=== PATIENT | male | born 1945 | race Caucasian/White ===

== ENCOUNTER 2017-03-08 20:13 | Inpatient (IN) | payer OTHER ==
[~2017-03-08] VITALS: Ht 175.3 cm; Wt 70.5 kg
[~2017-03-08 20:13] MED LIST: CAR3125T PO; CHOL20007 PO; ENA2.5T PO; FURO40TA PO; METF500T5; POTA10TA75 PO; WARF5TAB PO
[2017-03-08 20:58] LABS: Urine Bilirubin Negative (Negative); Urine Blood Negative /uL (Negative); Urine Color Yellow (Yellow); Urine Glucose Normal (Normal); Urine Hyaline Cast MOD /lpf (0 - 2); Urine Ketone Negative (Negative); Urine Mucus FEW (None Seen); Urine Nitrite Negative (Negative); Urine RBC <1 /hpf (0 - 3); Urine Squamous Epithelial Cell FEW /hpf (<5)
[2017-03-08] MEDS ORDERED: MORPHINE SULF INJ 2 MG/ML SYRINGE 1ML IV ONE (21:15)
[2017-03-08] MEDS ORDERED: ONDANSETRON HCL 4 MG/2 ML VIAL IV ONE (21:15)
[2017-03-08 21:29] LABS: Basophils # (auto) 0.1 uL; Basophils % (auto) 0.7 % (0.0-2.0); Eosinophils # (auto) 0.2 uL; Eosinophils % (auto) 2.3 % (0.0-7.0); Hematocrit 52.7 % (41.0-53.0); Hemoglobin 17.4 g/dL (13.5-17.5); Lymphocytes # (auto) 2.2 uL; Lymphocytes % (auto) 22.4 % (10.0-50.0); Mean Corpuscular Hemoglobin 30.7 pg (28.0-32.0); Mean Corpuscular Hgb Conc. 33.1 g/dL (32.0-36.0); Mean Corpuscular Volume 92.8 fL (80.0-100.0); Mean Platelet Volume 9.6 fL (6.9-10.8); Monocytes # (auto) 0.7 uL; Monocytes % (auto) 6.7 % (0.0-12.0); Neutrophils # (auto) 6.7 uL; Neutrophils % (auto) 67.9 % (37.0-80.0); Nucleated Red Blood Cells % 0.2 %; Platelet Count (auto) 143 10^3/uL (140-450); Red Cell Distribution Width 14.8 % (11.8-14.3); White Blood Cell 9.9 10^3/uL (4.4-10.8)
[2017-03-08 21:42] LABS: INR 3.21 (0.9-1.15); Partial Thromboplastin Time 30.7 sec (22.64-33.71); Prothrombin Time 35.4 sec (9.37-12.3)
[2017-03-08 21:53] LABS: Albumin 3.6 g/dL (3.4-5.0); BUN/Creatinine Ratio 23.3; Bilirubin, Total 1.3 mg/dL (0.2-1.0); Calcium 8.6 mg/dL (8.5-10.1); Magnesium 2.5 mg/dL (1.6-2.6); Potassium 4.8 mmol/L (3.5-5.1); Total Protein 7.7 g/dL (6.4-8.2)
[2017-03-09] MEDS ORDERED: TEMAZEPAM 15 MG CAP PO PRN (00:45)
[2017-03-09] MEDS ORDERED: PANTOPRAZOLE 40 MG/10 ML VIAL IV ONE (00:45)
[2017-03-09] MEDS ORDERED: DEXTROSE (50%) 50ML SYRG IV PRN (00:45)
[2017-03-09] MEDS ORDERED: ONDANSETRON HCL 4 MG/2 ML VIAL IV PRN (00:45)
[2017-03-09] MEDS ORDERED: FUROSEMIDE 40 MG/4 ML VIAL IV ONE (00:45)
[2017-03-09 01:33] LABS: Temperature: 22.2 C (20.0-25.0)
[2017-03-09 07:40] VITALS: BP 103/73
[2017-03-09] MEDS ORDERED: LISI2.5T47 PO (07:56)
[2017-03-09] MEDS ORDERED: COEN400C8 OR (07:56)
[2017-03-09] MEDS ORDERED: FURO40TA PO (07:56)
[2017-03-09] MEDS ORDERED: WARF2.5T39 PO (07:56)
[2017-03-09 08:08] LABS: Basophils # (auto) 0.1 uL; Basophils % (auto) 0.6 % (0.0-2.0); Eosinophils # (auto) 0.3 uL; Eosinophils % (auto) 3.2 % (0.0-7.0); Hematocrit 47.1 % (41.0-53.0); Hemoglobin 15.8 g/dL (13.5-17.5); Lymphocytes # (auto) 2.2 uL; Mean Corpuscular Hemoglobin 30.8 pg (28.0-32.0); Mean Corpuscular Hgb Conc. 33.7 g/dL (32.0-36.0); Mean Corpuscular Volume 91.4 fL (80.0-100.0); Mean Platelet Volume 9.6 fL (6.9-10.8); Monocytes # (auto) 0.7 uL; Monocytes % (auto) 8.3 % (0.0-12.0); Neutrophils # (auto) 5.5 uL; Neutrophils % (auto) 62.9 % (37.0-80.0); Nucleated Red Blood Cells % 0.6 %; Platelet Count (auto) 130 10^3/uL (140-450); Red Cell Distribution Width 14.3 % (11.8-14.3); White Blood Cell 8.8 10^3/uL (4.4-10.8)
[2017-03-09] MEDS: InsuLIN REG 1unit/0.01ml Soln (100units/ml) SC SCH ×4 (08:12→21:45)
[2017-03-09] MEDS: ACCU-CHEK COMFORT CURVE STRIP VI SCH ×4 (08:12→21:29)
[2017-03-09 08:13] LABS: BUN/Creatinine Ratio 29.3; Calcium 8.2 mg/dL (8.5-10.1); Potassium 4.8 mmol/L (3.5-5.1)
[2017-03-09 08:15] LABS: Bilirubin, Total 1.1 mg/dL (0.2-1.0); Total Protein 6.1 g/dL (6.4-8.2)
[2017-03-09] MEDS: LISINOPRIL 5 MG TAB PO SCH (10:00)
[2017-03-09] MEDS: CARVEDILOL 3.125 MG TAB PO SCH ×2 (10:00→21:28)
[2017-03-09] MEDS: PANTOPRAZOLE 40 MG/10 ML VIAL IV SCH (10:00)
[2017-03-09] MEDS: FUROSEMIDE 20 MG TAB PO SCH (10:00)
[2017-03-09] MEDS: POTASSIUM CHL 10 Meq TABLET PO SCH (10:24)
[2017-03-09 13:40] VITALS: BP_SYST 104; BP_SYST 117; BP_DIAS 68; BP_DIAS 72
[2017-03-09 17:00] VITALS: BP 104/68
[2017-03-09 20:00] VITALS: BP 99/64
[2017-03-09 21:45] VITALS: BP 99/64
[2017-03-10 05:00] VITALS: BP 103/78
[2017-03-10] MEDS: ACCU-CHEK COMFORT CURVE STRIP VI SCH ×3 (06:10→17:00)
[2017-03-10] MEDS: InsuLIN REG 1unit/0.01ml Soln (100units/ml) SC SCH ×3 (06:13→17:00)
[2017-03-10 06:29] LABS: INR 2.3 (0.9-1.15); Partial Thromboplastin Time 30.6 sec (22.64-33.71); Prothrombin Time 25.3 sec (9.37-12.3)
[2017-03-10 06:32] LABS: Albumin 3.1 g/dL (3.4-5.0); BUN/Creatinine Ratio 30.3; Calcium 8.4 mg/dL (8.5-10.1); Potassium 4.8 mmol/L (3.5-5.1)
[2017-03-10 06:35] LABS: Bilirubin, Total 1.1 mg/dL (0.2-1.0); Total Protein 6.4 g/dL (6.4-8.2)
[2017-03-10 08:00] VITALS: BP 127/60
[2017-03-10 09:00] VITALS: BP 115/82
[2017-03-10] MEDS: PANTOPRAZOLE 40 MG/10 ML VIAL IV SCH (10:00)
[2017-03-10] MEDS ORDERED: GLIP-115 PO (11:04)
[2017-03-10] MEDS: POTASSIUM CHL 10 Meq TABLET PO SCH (11:56)
[2017-03-10] MEDS: FUROSEMIDE 20 MG TAB PO SCH (11:57)
[2017-03-10] MEDS: LISINOPRIL 5 MG TAB PO SCH (11:59)
[2017-03-10] MEDS: CARVEDILOL 3.125 MG TAB PO SCH (12:00)
[2017-03-10 13:00] VITALS: BP 124/87
[2017-03-10 17:00] VITALS: BP 108/76
[2017-03-10] MEDS ORDERED: WARFARIN SODIUM 5 MG TAB PO ONE (17:00)
[2017-03-10 17:43] VITALS: BP 124/87
== END 2017-03-10 17:00 | disposition home or self-care (01) | DRG 291 ==
LOC: ER 20:14 → OVERFLOW 20:15 → CENTRAL 03-09 07:33 → TELE-E-ADS 03-09 07:46 → CENTRAL 03-09 13:54
PROVIDERS: ADMIT Nurse Practitioner Family; ATTEND Internal Medicine
DX: I13.0 Hypertensive heart and chronic kidney disease with heart failure and stage 1 through stage 4 chronic kidney disease, or unspecified chronic kidney disease (principal); I50.43 Acute on chronic combined systolic (congestive) and diastolic (congestive) heart failure; N17.0 Acute kidney failure with tubular necrosis; E11.21 Type 2 diabetes mellitus with diabetic nephropathy; N18.3 Chronic kidney disease, stage 3 (moderate); I25.10 Atherosclerotic heart disease of native coronary artery without angina pectoris; M10.9 Gout, unspecified; F32.9 Major depressive disorder, single episode, unspecified; F41.9 Anxiety disorder, unspecified; M41.9 Scoliosis, unspecified; E11.22 Type 2 diabetes mellitus with diabetic chronic kidney disease; R10.30 Lower abdominal pain, unspecified; I25.2 Old myocardial infarction; Z79.01 Long term (current) use of anticoagulants; Z83.3 Family history of diabetes mellitus; Z82.49 Family history of ischemic heart disease and other diseases of the circulatory system; Z86.718 Personal history of other venous thrombosis and embolism; Z95.810 Presence of automatic (implantable) cardiac defibrillator
CPT/HCPCS: 36415; 71010; 74176; 80053; 81001; 82150; 82962; 83036; 83690; 83735; 83880; 84443; 84484; 85025; 85610; 85730; 87045; 87493; 87899; 93306; 94761; 96374; 96375; C9113; J1815; J2405